=== PATIENT | female | born 1980 | race Caucasian/White ===

== ENCOUNTER 2021-02-08 16:43 | Emergency (ER) | payer OTHER ==
[2021-02-08 17:26] VITALS: BP 154/91; TEMP 99.3; BMI 38.7
[2021-02-08] MEDS ORDERED: DIPHTH,PERTUSS(ACELL),TET 0.5 ML DISP.SYRIN IM ONE ×2 (18:09→18:18)
[2021-02-08 19:07] VITALS: PULSE 89
== END 2021-02-08 19:10 | disposition home or self-care (01) ==
LOC: JERFT 16:43
PROC: 3E0234Z Introduction of Serum, Toxoid and Vaccine into Muscle, Percutaneous Approach (ICD-10-PCS; principal; 2021-02-08)
DX: S09.90XA Unspecified injury of head, initial encounter (principal)
CPT/HCPCS: 70450-TC; 90471; 90715; 99284-25

== ENCOUNTER → 2023-02-16 | Day surgery (SDC) | payer OTHER | END | disposition home or self-care (01) | LOC: FMAMMOTONE 10:42 | PROVIDERS: ATTEND Surgery | PROC: 0HBV3ZX Excision of Bilateral Breast, Percutaneous Approach, Diagnostic (ICD-10-PCS; principal; 2023-02-16) | DX: N60.11 Diffuse cystic mastopathy of right breast (principal); N60.12 Diffuse cystic mastopathy of left breast; N60.31 Fibrosclerosis of right breast; N64.89 Other specified disorders of breast; R92.8 Other abnormal and inconclusive findings on diagnostic imaging of breast | CPT/HCPCS: 19081; 76098-TC-FY; 87899; 88305-TC; 88341-TC; 88342-TC; A4648 ==

== ENCOUNTER 2024-07-17 04:17 | Day surgery (SDC) | payer OTHER ==
[2024-07-12 17:36] VITALS: BMI 38.7
[2024-07-17] MEDS ORDERED: METHYLENE BLUE 50 MG/10 ML AMPUL ONE (07:21)
[2024-07-17] MEDS ORDERED: LIDOCAINE HCL 1%, 10 MG/ML (20ML VIAL) ONE (08:13)
[2024-07-17] MEDS ORDERED: DEXAMETHASONE SOD PHOSPHATE 4 MG/1 ML VIAL ONE (09:30)
[2024-07-17] MEDS ORDERED: PROPOFOL 20 ML ONE (09:30)
[2024-07-17] MEDS ORDERED: MIDAZOLAM HCL 2 MG/2 ML SINGLE DOSE VIAL ONE (09:32)
[2024-07-17] MEDS: LIDOCAINE HCL 1%, 10 MG/ML (20ML VIAL) NR ONE ×2 (09:50→10:05)
[2024-07-17] MEDS ORDERED: ceFAZolin SODIUM 1 GM VIAL ONE ×2 (09:57→09:58)
[2024-07-17] MEDS ORDERED: BACITRACIN ZINC 15 GM TUBE TOPICAL OINTMENT ONE (09:58)
[2024-07-17] MEDS ORDERED: ALBUTEROL SO4 HFA INHALER IH ONE (10:14)
[2024-07-17] MEDS ORDERED: ALBUTEROL SO4 2.5/IPRATROPIUM 0.5 INH SOL 3 ML VIAL.NEB. NEB PRN (11:10)
[2024-07-17] MEDS ORDERED: ONDANSETRON 4 MG/2 ML VIAL IVPUSH PRN (11:10)
[2024-07-17] MEDS: LACTATED RINGERS SOLUTION 1,000 ML IV SCH (11:38)
[2024-07-17 14:23] VITALS: TEMP 97.3
[2024-07-17 14:30] VITALS: BP 151/67; PULSE 54; RESP 20
== END 2024-07-17 14:08 | disposition home or self-care (01) ==
LOC: JASU-SURG 04:17
PROVIDERS: ATTEND Surgery
PROC: 0HBV0ZX Excision of Bilateral Breast, Open Approach, Diagnostic (ICD-10-PCS; principal; 2024-07-17 09:51)
DX: N60.02 Solitary cyst of left breast (principal); N60.01 Solitary cyst of right breast
CPT/HCPCS: 81025; 88307-TC; 94760; Q9968